=== PATIENT | female | born 1945 | race African-American/Black ===

== ENCOUNTER 2018-08-19 20:48 | Emergency (ER) | payer OTHER ==
[~2018-08-19] VITALS: Ht 177.8 cm; Wt 73.0 kg
[2018-08-19] MEDS ORDERED: ASPIRIN 81MG TABLET PO ONE (21:15)
[2018-08-19 21:46] LABS: BASOPHILS % 0.7 % (0.0-2.0); EOSINOPHILS % 2.9 % (0.0-5.0); HEMATOCRIT. 33.4 % (36.0-48.0); HEMOGLOBIN. 10.4 g/dL (12.0-16.0); LYMPHOCYTES % 27.3 % (20.0-50.0); MEAN CORPUSCULAR HEMOGLOBIN 25.2 pg (28.0-32.0); MONOCYTES % 13.8 % (2.0-8.0); NEUTROPHILS % 55.3 % (40.0-76.0); PLATELET 282 x1000/uL (130-400); RED BLOOD CELL COUNT 4.13 mill/uL (4.2-5.4)
[2018-08-19 21:48] LABS: CHLORIDE 110 mEq/L (98-107)
[2018-08-20 02:00] VITALS: BP 140/61
== END 2018-08-20 02:00 | disposition home or self-care (01) ==
LOC: ER 21:00
DX: T54.1X1A Toxic effect of other corrosive organic compounds, accidental (unintentional), initial encounter (principal); R07.89 Other chest pain; I10 Essential (primary) hypertension; F41.9 Anxiety disorder, unspecified; F03.90 Unspecified dementia, unspecified severity, without behavioral disturbance, psychotic disturbance, mood disturbance, and anxiety; Y92.89 Other specified places as the place of occurrence of the external cause
CPT/HCPCS: 36415; 71045; 83880; 84484; 93005; 99284

== ENCOUNTER 2020-04-06 18:43 | Emergency (ER) | payer OTHER ==
[~2020-04-06] VITALS: Ht 167.6 cm; Wt 73.0 kg
[~2020-04-06 18:43] MED LIST: ETHA400T8 MT; ETHA400T8 PO; ISON300T19 MT; PYRA500T13 MT; PYRA500T13 PO; PYRI-7 MT; RIFA300C4 MT; RIFA300C4 PO
[2020-04-06 18:48] VITALS: BP 180/90
[2020-04-06 19:28] LABS: BASOPHILS % 0.6 % (0.0-2.0); EOSINOPHILS % 2.2 % (0.0-5.0); HEMOGLOBIN. 10.2 g/dL (12.0-16.0); LYMPHOCYTES % 16.4 % (20.0-50.0); MEAN CORPUSCULAR HEMOGLOBIN 28.2 pg (28.0-32.0); MEAN CORPUSCULAR VOLUME 88.5 fL (81.0-99.0); MEAN PLATELET VOLUME 6.6 fl (7.4-10.4); MONOCYTES % 13.4 % (2.0-8.0); NEUTROPHILS % 67.4 % (40.0-76.0); PLATELET 268 x1000/uL (130-400); RED BLOOD CELL COUNT 3.61 mill/uL (4.2-5.4)
== END 2020-04-06 20:17 | disposition home or self-care (01) ==
LOC: ER 18:43
DX: R79.89 Other specified abnormal findings of blood chemistry (principal); I10 Essential (primary) hypertension
CPT/HCPCS: 36415; 80048; 85025; 93005; 99284